=== PATIENT | female | born 1960 | race Caucasian/White ===

== ENCOUNTER 2018-09-17 06:36 | Inpatient (IN) | payer BC ==
[2018-09-17] MEDS ORDERED: Scopolamine 1.5 MG Transdermal Patch TOP ONE (06:45)
[2018-09-17] MEDS ORDERED: Acetaminophen 500 MG Tab PO ONE (06:45)
[2018-09-17] MEDS ORDERED: Bupivacaine 0.5%/EPINEPHrine 1:200,000 50 ML MDV ONE (06:47)
[2018-09-17] MEDS ORDERED: Meropenem 500 MG SDV ONE (06:47)
[2018-09-17] MEDS ORDERED: fentaNYL 250 MCG/5 ML SDV ONE ×3 (07:05→09:28)
[2018-09-17] MEDS ORDERED: Succinylcholine 200 MG/10 ML MDV ONE (07:06)
[2018-09-17] MEDS ORDERED: Neostigmine Methylsulfate 1 MG/ML 5 ML Syringe ONE (07:06)
[2018-09-17] MEDS ORDERED: Dexamethasone 4 MG/ML SDV ONE (07:06)
[2018-09-17] MEDS ORDERED: Propofol 200 MG/20 ML SDV ONE (07:06)
[2018-09-17] MEDS ORDERED: Glycopyrrolate 0.2 MG/ML 5 ML MDV ONE (07:06)
[2018-09-17] MEDS ORDERED: Ondansetron 4 MG/2 ML SDV ONE (07:06)
[2018-09-17] MEDS ORDERED: Rocuronium 50 MG/5 ML Vial ONE (07:06)
[2018-09-17] MEDS ORDERED: ceFAZolin 2 GM in Premix Bag 1 BAG IV ONE (07:30)
[2018-09-17] MEDS ORDERED: Dextrose 5%-Lactated Ringers 1,000 ML IV SCH (07:30)
[2018-09-17] MEDS ORDERED: Lidocaine 1% 2 ML ONE (08:12)
[2018-09-17] MEDS ORDERED: Ketamine 500 MG/5 ML MDV IV SCH (08:15)
[2018-09-17] MEDS ORDERED: Ropivacaine 36 ML, Dexamethasone 8 MG, EPINEPHrine 0.4 MG, Sodium Chloride 0.9% 41.6 ML NERVRT SCH ×4 (08:15)
[2018-09-17] MEDS ORDERED: HYDROmorphone/Normal Saline 15 MG/30 ML PCA IV PRN (09:26)
[2018-09-17] MEDS ORDERED: Naloxone 0.4 MG/ML SDV IV PRN (09:29)
[2018-09-17] MEDS ORDERED: Lactated Ringers 1,000 ML ONE (09:40)
[2018-09-17] MEDS ORDERED: Ondansetron 4 MG/2 ML SDV IVPUSH PRN (11:22)
[2018-09-17] MEDS ORDERED: hydrOXYzine HCl 100 MG/2 ML SDV IM PRN (11:31)
[2018-09-17] MEDS ORDERED: Metoclopramide 10 MG/2 ML SDV IVPUSH STA (11:38)
[2018-09-17] MEDS: Sodium Ferric Gluconate Cmplex 250 MG in Sodium Chloride 0.9% 100 ML IV SCH (12:30)
[2018-09-17] MEDS ORDERED: Pantoprazole 40 MG Vial IV SCH (14:00)
[2018-09-17] MEDS ORDERED: Acetaminophen 500 MG Tab PO SCH (14:00)
[2018-09-17] MEDS: ceFAZolin 2 GM in Premix Bag 1 BAG IV SCH ×2 (14:10→21:28)
[2018-09-17] MEDS: Dextrose 5%-Lactated Ringers 1,000 ML IV SCH ×2 (14:21→21:28)
[2018-09-17] MEDS: Acetaminophen 1,000 MG in Premix Bag 1 BAG IV SCH ×2 (14:54→20:39)
[2018-09-17] MEDS: Cyclobenzaprine 10 MG Tab PO PRN (14:54)
[2018-09-17] MEDS: Metoclopramide 10 MG/2 ML SDV IVPUSH SCH ×2 (16:21→21:28)
[2018-09-18] MEDS: Acetaminophen 1,000 MG in Premix Bag 1 BAG IV SCH (02:07)
[2018-09-18] MEDS: Metoclopramide 10 MG/2 ML SDV IVPUSH SCH ×4 (03:06→22:50)
[2018-09-18] MEDS: Dextrose 5%-Lactated Ringers 1,000 ML IV SCH ×3 (05:03→20:43)
[2018-09-18] MEDS: ceFAZolin 2 GM in Premix Bag 1 BAG IV SCH (05:03)
[2018-09-18] MEDS ORDERED: Lactated Ringers 500 ML IV ONE (05:15)
[2018-09-18] MEDS: Acetaminophen 325 MG Tab PO SCH ×3 (08:27→20:30)
[2018-09-18] MEDS: Aspirin 81 MG Tab.EC PO SCH (08:27)
--- NOTE | 2018-09-18 08:33 | PN ---
DATE OF SERVICE: 09/18/2018 SUBJECTIVE: Kay is postoperative day #1. She has had complications with nausea and pain. She is on IV Reglan and that has helped with the nausea. Oral intake 390. Her urine output was decreased. She did receive one bolus of lactated Ringer's. Vital signs have been stable. Urine output via Benavides catheter is 1500. REVIEW OF SYSTEMS: Remainder of review of systems negative for any pertinent positives and negatives. OBJECTIVE: GENERAL: Kay Marquez is a 58-year-old female, alert, orientated. VITAL SIGNS: TPR 98.3, 57, 16, blood pressure 130/67. HEENT: Negative. NECK: Supple. HEART: Regular rate and rhythm. LUNGS: Clear. ABDOMEN: Dressings dry and intact. Abdominal binder is on. EXTREMITIES: Without peripheral edema. Benavides catheter in place. ASSESSMENT: Laparoscopic turned to open repair of incarcerated incisional hernia with mesh, repair of incarcerated umbilical hernia with mesh, placement of Vicryl mesh for incarcerated incisional hernia, incarcerated umbilical hernia, and extensive intraabdominal adhesions. Date of surgery: 09/17/2018. Oseas Sierra MD. PLAN: 1. Reglan IV 10 mg q.6 hours scheduled for 24 hours. 2. Reglan 10 mg IV q.6 hours p.r.n. nausea, starting Friday09/19/2018 at 0700. 3. Tylenol 650 mg q.6 hours scheduled. 4. Discontinue Benavides catheter. 5. IV decreased to 100 mL/h at 6 p.m. 6. Good pulmonary toilet. 7. We will evaluate p.r.n. or in a.m. 8. The patient is getting her second dose of ferric sodium gluconate complex 250 mg. She received one yesterday. Jennifer Ruiz PA-C /[id number]
[2018-09-18] MEDS: Sodium Ferric Gluconate Cmplex 250 MG in Sodium Chloride 0.9% 100 ML IV SCH (11:05)
[2018-09-18] MEDS: Pantoprazole 40 MG Tab.CR PO SCH (14:27)
[2018-09-19] MEDS: Acetaminophen 325 MG Tab PO SCH ×4 (02:51→19:56)
[2018-09-19] MEDS: Cyclobenzaprine 10 MG Tab PO PRN (02:55)
[2018-09-19] MEDS: Metoclopramide 10 MG/2 ML SDV IVPUSH SCH (03:00)
[2018-09-19] MEDS ORDERED: Metoclopramide 10 MG/2 ML SDV IVPUSH PRN (07:00)
[2018-09-19] MEDS: Dextrose 5%-Lactated Ringers 1,000 ML IV SCH ×2 (07:08→17:06)
[2018-09-19] MEDS: Aspirin 81 MG Tab.EC PO SCH (08:17)
[2018-09-19] MEDS ORDERED: HYDROmorphone 2 MG Tab PO PRN (11:16)
[2018-09-19] MEDS ORDERED: Bisacodyl 5 MG Tab PO SCH (12:00)
[2018-09-19] MEDS: Bisacodyl 5 MG Tab PO SCH ×4 (12:24→22:32)
[2018-09-19] MEDS: HYDROmorphone 2 MG Tab PO PRN (12:34)
[2018-09-19] MEDS: Pantoprazole 40 MG Tab.CR PO SCH (15:02)
[2018-09-20] MEDS: Acetaminophen 325 MG Tab PO SCH ×2 (03:57→08:05)
[2018-09-20] MEDS: HYDROmorphone 2 MG Tab PO PRN (05:38)
[2018-09-20] MEDS ORDERED: Magnesium Hydroxide 400 MG/5 ML Susp 30 ML Cup PO PRN (08:36)
--- NOTE | 2018-09-20 09:06 | PN ---
DATE OF SERVICE: 09/19/2018 The patient has been afebrile with stable vital signs. Pain control appears to be improving and we will begin oral pain medication. In the past, she used oral Dilaudid without a problem, we will start that in addition to the Tylenol. We will begin some bowel stimulation today. She may be ready for discharge home eventually tomorrow. Oseas Sierra MD /[id number]
[2018-09-20] MEDS: Bisacodyl 5 MG Tab PO SCH (09:15)
[2018-09-20] MEDS: Aspirin 81 MG Tab.EC PO SCH (09:15)
--- NOTE | 2018-09-20 10:00 | DISCH ---
FINAL DIAGNOSES: 1. Incarcerated incisional hernia and incarcerated umbilical hernia and extensive intraabdominal adhesions. 2. Bariatric surgery status. 3. Iron deficiency. OPERATIVE PROCEDURES: Done on 09/17/2018, diagnostic laparoscopy converted to open laparotomy with: 1. Repair of incarcerated incisional hernia with mesh. 2. Repair of incarcerated umbilical hernia with mesh. 3. Placement of Vicryl mesh to displace viscera from pelvic and abdominal wall to limit recurrent adhesion formation. SUMMARY: This is a 58-year-old female presenting with recurrent incisional hernia. On the day of admission, the patient underwent initially a diagnostic laparoscopy. The extent of adhesions and the size of the hernia was such that we felt that open approach would be necessary, and the hernia was thus repaired. The patient also had an additional incarcerated incisional hernia as well as incarcerated umbilical hernia. All these were repaired with mesh and Vicryl mesh was then placed underlying that to limit adhesion formation. Postoperatively, no major problems were noted. She is passing flatus at this point and not moving bowels as of yet but appears to be fairly close and should be discharged home with Dilaudid 2 mg q.4 hours p.r.n. pain #42 along with 2 doses of milk of magnesia as well as her usual home medications. Follow up will be with Jennifer Ruiz at [facility] on 09/25/2018, at 10 a.m.
--- NOTE | 2018-09-23 15:07 | OR ---
DATE OF PROCEDURE: 09/17/2018 PREOPERATIVE DIAGNOSIS: Incisional hernia. POSTOPERATIVE DIAGNOSES: 1. Incarcerated incisional hernia. 2. Incarcerated umbilical hernia. 3. Extensive intraabdominal adhesions. OPERATIVE PROCEDURES: Diagnostic laparoscopy converted to laparotomy with, 1. Repair of incarcerated incisional hernia with mesh (85464, [id number]). 2. Repair of incarcerated umbilical hernia with mesh (74022). 3. Placement of Vicryl mesh to limit recurrent adhesion formation between viscera and pelvic and abdominal wills (23272). ANESTHESIA: General. ASSISTANTS: Jennifer Ruiz PA-C, and CANDIE Bee. INDICATION FOR PROCEDURE: This is a 58-year-old presenting with increasingly symptomatic incisional hernia located in the epigastric area. Plan is to proceed with laparoscopy possible laparotomy, and repair of the hernia with mesh. Potential risks including bleeding, infection, injury to underlying viscera, problems with the hernia recurring and the mesh becoming infected, as well as the possibility of cardiopulmonary, septic, or hemorrhagic complications leading to were discussed, and the patient wishes to proceed. DETAILS OF PROCEDURE: The patient was taken to the operating room and placed in a supine position. After general endotracheal anesthesia was induced, she was converted to a lithotomy position. A Benavides catheter was placed, and she was then prepped and draped. In the left lower quadrant, a transverse incision was made, and the peritoneal cavity entered under direct vision with an Optiview trocar, inflated to 15 mmHg pressure with CO2. Laparoscope was then reinserted and no underlying trocar insertion site injuries were seen. Following this, 5 mm trocars were placed in the right midabdomen and left midabdomen. The patient was noted at this time to have a very broad-based fascial defect. There was also, in addition to the large incisional hernia, a small umbilical hernia, both of which contained some incarcerated omentum within them. These omental adhesions to the hernia were then taken down with Harmonic scalpel. Some of the hernia sac was then resected as well. We attempted at this point to provide somewhat of a fascial closure of the incisional hernia as this was so broad-based that something an onlay mesh would likely still be quite symptomatic and not provide a stable abdominal wall. sutures were then placed, it became evident that the intention was to create with the laparoscopic approach to satisfactorily control the abdominal wall closure. At this point, the trocars were removed and a midline incision was made. Small amount of previous skin was removed to allow more satisfactory closure with vertical incision being made over the areas of hernias. Upon entering the peritoneal cavity, remainder of the hernia sacs were removed. At this point, Ventrio ST mesh measuring 19.6 cm x 24.6 cm was selected. This was soaked in antibiotic-containing saline solution. At roughly 5 to 6 cm intervals around its circumference on the polypropylene side of the mesh, 2-0 Vicryl sutures were placed and small stab wounds were placed in the abdominal wall, where these would be pulled up. The mesh was then placed in intraperitoneal location. The upper half of the sutures was then pulled up snugly against the abdominal wall. Following this, to limit recurrent adhesion formation, a 12-inch area of Vicryl mesh was then placed underneath the area of bladder along the pelvic sidewalls and up against the abdominal wall, including the area of the new mesh formation. The remaining sutures to the Ventrio ST mesh were then pulled up and tied, and the mesh was then reinforced with titanium tacking screws to the underlying shelf up to the abdominal wall as well. The midline fascia was then approximated with #2 Vicryl stitch, which also was used to close the area of the umbilical hernia. The subcutaneous tissues were then approximated with 2 layers of 3-0 and 4-0 Vicryl stitch deep and gabino for the skin. Dressing was applied. The patient was taken to the recovery room in a satisfactory condition. Physician assistant prosecuting attorney, Jennifer Ruiz, played an essential role in assisting in this case, helping to position the patient, retract structures as needed, as well as suturing and cutting sutures when indicated. Her presence improved patient safety and decreased the operative time. Oseas Sierra MD /[id number]
== END 2018-09-20 10:50 | disposition home or self-care (01) | DRG 227 ==
LOC: JP.SDS 06:36 → JP.SDSSCHI 06:36 → EDSTATUS 07:45 → JP.MS 10:20
PROVIDERS: ADMIT Surgery; ATTEND Surgery
PROC: 0WUF0JZ Supplement Abdominal Wall with Synthetic Substitute, Open Approach (ICD-10-PCS; principal; 2018-09-17)
PROC: 0WUF0JZ Supplement Abdominal Wall with Synthetic Substitute, Open Approach (ICD-10-PCS; 2018-09-17)
PROC: 0WJF4ZZ Inspection of Abdominal Wall, Percutaneous Endoscopic Approach (ICD-10-PCS; 2018-09-17)
PROC: 3E0M05Z Introduction of Adhesion Barrier into Peritoneal Cavity, Open Approach (ICD-10-PCS; 2018-09-17)
PROC: 0DNU4ZZ Release Omentum, Percutaneous Endoscopic Approach (ICD-10-PCS; 2018-09-17)
DX: K43.0 Incisional hernia with obstruction, without gangrene (principal); Z53.31 Laparoscopic surgical procedure converted to open procedure; K42.0 Umbilical hernia with obstruction, without gangrene; K66.0 Peritoneal adhesions (postprocedural) (postinfection); Z98.84 Bariatric surgery status; E61.1 Iron deficiency; I10 Essential (primary) hypertension; E78.5 Hyperlipidemia, unspecified; Z87.891 Personal history of nicotine dependence; Z79.82 Long term (current) use of aspirin
CPT/HCPCS: 88302; 94762; A9270-GY; C1781; C9113; J0131; J0171; J0330; J0690; J1100; J1170; J2001; J2020; J2185; J2405; J2704; J2710; J2765; J2795; J2916; J3010; J3410; J3490; J7030; J7042; J7050; J7120